=== PATIENT | female | born 1955 | race Two or more races ===

== ENCOUNTER 2022-11-16 22:29 | Emergency (ER) | payer MEDICARE, MEDICAID ==
[~2022-11-16] VITALS: Ht 157.5 cm; Wt 75.0 kg
[2022-11-17] MEDS ORDERED: TRAM50TA2 PO (02:09)
[2022-11-17 02:30] VITALS: BP 148/70; PULSE 72; RESP 75; TEMP 98.2; O2SAT 98
== END 2022-11-17 02:43 | disposition home or self-care (01) ==
LOC: EDBD 22:29 → ER 22:29
DX: S33.5XXA Sprain of ligaments of lumbar spine, initial encounter (principal); S13.9XXA Sprain of joints and ligaments of unspecified parts of neck, initial encounter; S20.219A Contusion of unspecified front wall of thorax, initial encounter; S09.90XA Unspecified injury of head, initial encounter; M50.30 Other cervical disc degeneration, unspecified cervical region; V89.2XXA Person injured in unspecified motor-vehicle accident, traffic, initial encounter; Y93.89 Activity, other specified; Y92.89 Other specified places as the place of occurrence of the external cause; Y99.8 Other external cause status
CPT/HCPCS: 70450; 71046; 72100; 72125